=== PATIENT | male | born 1930 | race Caucasian/White ===

== ENCOUNTER 2020-11-08 00:50 | Emergency (ER) | payer MEDICARE, BC ==
[2020-11-08] MEDS ORDERED: Labetalol 100 MG/20 ML MDV IVPUSH ONE (00:58)
[2020-11-08 01:30] LABS: BLOOD UREA NITROGEN,BUN 19 mg/dL (7.0-18.0); CHLORIDE,CL 104 mmol/L (98-107); GLUCOSE RANDOM 148 mg/dL (74-106); POTASSIUM,K 4.6 mmol/L (3.5-5.1); SODIUM,NA 140 mmol/L (136-148)
--- NOTE | 2020-11-08 01:42 | EDM.PDOC ---
ED HPI GENERAL MEDICAL PROBLEM - General Chief Complaint: General Stated Complaint: SEVER PAIN Time Seen by Provider: 11/08/20 00:51 - History of Present Illness INITIAL COMMENTS - FREE TEXT/NARRATIVE: CHIEF COMPLAINT(S): Fall HISTORY OF PRESENT ILLNESS: This is a 89-year-old man with a past medical history of dementia, hypertension, CAD who comes to the emergency department with a chief complaint of fall. The patient is alert and oriented x4 and denies any complaints at all whatsoever. He states that he may have fallen. The patient's was in presence stated that over the last couple of days he has been falling multiple times. He states she states that he was walking to the restroom today and he did not make it to the restroom as he slipped on the ground and fell onto the left side and has been complaining of back pain. She states that he ambulates with a walker and that she lives with him and her son. She states that they did are able to take care of him. She was just concerned because of the fall. She denies any other symptoms. REVIEW OF SYSTEMS: Constitutional: Denies fever, chills. Eyes: Denies eye pain Ears, Nose, Mouth, & Throat: Denies earache Cardiovascular: Denies chest pain Respiratory: Denies shortness of breath Gastrointestinal: Denies Nausea, vomiting, diarrhea, hematochezia. Genitourinary: Denies hematuria Skin:Denies a rash MSK: Denies joint pain Neurological: Denies blurred vision, numbness, tingling Psychiatric: Denies depression PAST MEDICAL HISTORY: As per history of present illness and as reviewed below otherwise noncontributory. SURGICAL HISTORY: As per history of present illness and as reviewed below otherwise noncontributory. SOCIAL HISTORY: As per history of present illness and as reviewed below otherwise noncontributory. FAMILY HISTORY: As per history of present illness and as reviewed below otherwise noncontributory. EXAMINATION OF ORGAN SYSTEMS/BODY AREAS: Constitutional: Blood pressure was 220/151, heart rate 88, respiratory 18 with an oxygen saturation 98% on room air. Temperature 36.2 General: Elderly man who appears to be in no acute distress Psychiatric: Appropriate mood and affect. Eyes: No scleral icterus or conjunctival erythema pupils are equal round reactive to light. Extraocular movements intact. No vertical or horizontal nystagmus. ENMT: Moist mucous membranes. No pharyngeal erythema tongue protrudes midline. No missing or chipped teeth Cardiovascular: Regular, rate, and rhythm. No gallops, murmurs, or rubs. Bilateral upper extremity and lower extremity pulses symmetric and intact. No peripheral edema. No JVD. Respiratory: Lungs clear to auscultation bilaterally. No wheezes, rales, or rhonchi. Gastrointestinal: Soft, non-tender, non-distended. Normoactive bowel sounds Genitourinary: No suprapubic tenderness Musculoskeletal: Normal range of motion. There is tenderness to palpation along the left hip directly. Skin: No lesions or abrasions. There is no evidence of head injury. Neurological: Alert, GCS 15 strength and sensation grossly intact in upper and lower extremities bilaterally. The patient is acting very appropriately MEDICAL DECISION MAKING AND COURSE IN THE ED WITH INTERPRETATION/REVIEW OF DIAGNOSTIC STUDIES: This is a 89-year-old man with a past medical history of dementia who comes to the emergency department with acute mechanical fall which appears to be recurrent with left-sided tenderness with no evidence of trauma on the patient's body. The patient is alert and oriented x4 however given his history of dementia and fall we will obtain a CT head without contrast to ev aluate for any abnormality. Will obtain a chest x-ray and a pelvic x-ray. EKG was obtained which did not reveal any acute signs of ischemia. Will obtain broad laboratory analysis given his continued weakness. The patient initially did have hypertension however on repeat his blood pressure remained normal. Therefore no medication was administered. Laboratory: CBC is unremarkable except for some mild thrombocytopenia at 129. CMP reveals mildly elevated BUN at 19 and hyperglycemia at 148 otherwise unremarkable. Troponin is negative. CPK is normal. TSH and T4 are normal. Urinalysis was a clean catch and was negative for leukocyte esterase, negative for nitrites, and negative for blood. Interpretation: Negative. The radiological images were viewed by myself along with reading the report from the radiologist. CT head without contrast does not reveal any acute intracranial abnormality. There is generalized volume loss with mild chronic ischemic changes of the cerebral white matter. Chest x-ray does not reveal any acute cardiopulmonary process. There is stable pleural thickening likely due to prior inflammatory disease. Pelvic x-ray does not reveal any acute fracture or dislocation. After labs and imaging the patient continued to remain stable. At this time I did have a discussion with the patient, the , and the son at bedside. I discussed that given the multiple falls we could admit the patient for physical therapy and Occupational Therapy evaluation. The stated that they were able to take care of at at home and they do have an appoint with his primary care physician and they could discuss home health care and outpatient physical therapy and Occupational Therapy evaluation. I encouraged them to keep this appointment and to return to the emergency department for any new or worsening symptoms. They were amenable to discharge at this time and had no further questions. DISPOSITION: The patient was discharged home in stable condition. The patient will follow up with taper/finisher this week at their scheduled CONDITION: Fair PROCEDURES: None FINAL IMPRESSION(S)/DIAGNOSES: 1. Acute mechanical fall 2. Acute left hip contusion Eladio Rodriguez M.D. - Related Data Allergies Allergy/AdvReac Type Severity Reaction Status Date / Time No Known Allergies Allergy Verified 11/08/20 00:56 Home Meds: Home Meds Doxazosin [Cardura] 2 mg PO BEDTIME 04/01/14 [History] Simvastatin [Zocor] 40 mg PO BEDTIME 04/01/14 [History] amLODIPine [Norvasc] 5 mg PO DAILY 02/17/15 [History] Pantoprazole [ProTONIX] 40 mg PO BID #60 tab 02/19/16 [Rx] Past Medical History - Past Health History Medical/Surgical History: Denies Medical/Surgical History HEENT History: Reports: None Other HEENT History: patient wearing glasses Cardiovascular History: Reports: Hypertension, PA Other Cardiovascular History: s/p coronary stent 2 1/2 yr ago. stopped asa and plavix about 2 weeks ago. Uses antihypertensive meds on PRN basis checks BP daily. does not know when he last took the betablocker Respiratory History: Reports: None Gastrointestinal History: Reports: GERD, GI Bleed Genitourinary History: Reports: None Musculoskeletal History: Reports: None Neurological History: Reports: None Psychiatric History: Reports: None Endocrine/Metabolic History: Reports: None Hematologic History: Reports: None Immunologic History: Reports: None Oncologic (Cancer) History: Reports: None Dermatologic History: Reports: None - Past Surgical History Head Surgeries/Procedures: Reports: None Cardiovascular Surgical History: Reports: Carotid Endarterectomy, Coronary Artery Stent Other Cardiovascular Surgeries/Procedures: Carotid Endarterectomy Male Surgical History: Reports: None Social & Family History - Family History Family Medical History: No Pertinent Family History Cardiac: Reports: None Endocrine/Metabolic: Reports: Diabetes, type II - Tobacco Use Tobacco Use Status *Q: Former Tobacco User Used Tobacco, but Quit: Yes Month/Year Tobacco Last Used: 09/2009 - Caffeine Use Caffeine Use: Reports: Coffee - Recreational Drug Use Recreational Drug Use: No - Living Situation & Occupation Living situation: Reports: with Family ED ROS GENERAL - Review of Systems Review Of Systems: See Below ED EXAM, GENERAL - Physical Exam Exam: See Below Course - Vital Signs Last Recorded V/S: Last Vital Signs Temp 36.2 C 11/08/20 00:52 Pulse 80 11/08/20 02:30 Resp 18 11/08/20 02:30 BP 190/90 H 11/08/20 02:30 Pulse Ox 96 11/08/20 02:30 - Orders/Labs/Meds Labs: Laboratory Tests 11/08/20 11/08/20 11/08/20 Range/Units 00:59 00:59 00:59 WBC 6.44 (4.0-11.0) K/uL RBC 5.02 (4.50-5.90) M/uL Hgb 14.5 (13.0-17.0) g/dL Hct 42.1 (38.0-50.0) % MCV 83.9 (80.0-98.0) fL MCH 28.9 (27.0-32.0) pg MCHC 34.4 (31.0-37.0) g/dL RDW Std Deviation 45.3 (28.0-62.0) fl RDW Coeff of Milana 15 (11.0-15.0) % Plt Count 129 L (150-400) K/uL MPV 12.60 H (7.40-12.00) fL Neut % (Auto) 75.9 (48.0-80.0) % Lymph % (Auto) 13.0 L (16.0-40.0) % Ray % (Auto) 9.8 (0.0-15.0) % Eos % (Auto) 1.1 (0.0-7.0) % Baso % (Auto) 0.2 (0.0-1.5) % Neut # (Auto) 4.9 (1.4-5.7) K/uL Lymph # (Auto) 0.8 (0.6-2.4) K/uL Ray # (Auto) 0.6 (0.0-0.8) K/uL Eos # (Auto) 0.1 (0.0-0.7) K/uL Baso # (Auto) 0.0 (0.0-0.1) K/uL Sodium 140 (136-148) mmol/L Potassium 4.6 (3.5-5.1) mmol/L Chloride 104 (98-107) mmol/L Carbon Dioxide 27.0 (21.0-32.0) mmol/L BUN 19 H (7.0-18.0) mg/dL Creatinine 1.3 (0.8-1.3) mg/dL Est Cr Clr Drug Dosing TNP Estimated GFR (MDRD) 52.1 ml/min Glucose 148 H (74-106) mg/dL Calcium 8.6 (8.5-10.1) mg/dL Magnesium 2.2 (1.8-2.4) mg/dL Total Bilirubin 0.5 (0.2-1.0) mg/dL AST 23 (15-37) IU/L ALT 25 (14-63) IU/L Alkaline Phosphatase 52 (46-116) U/L Creatine Kinase 99 (26-308) U/L Troponin I < 0.050 (0.000-0.056) ng/mL Total Protein 6.8 (6.4-8.2) g/dL Albumin 3.5 (3.4-5.0) g/dL Globulin 3.3 (2.6-4.0) g/dL Albumin/Globulin Ratio 1.1 (0.9-1.6) Free T4 1.19 (0.76-1.46) ng/dL TSH 3rd Generation 1.91 (0.36-3.74) uIU/mL Urine Color YELLOW Urine Appearance CLEAR Urine pH 6.0 (5.0-8.0) Ur Specific Driscoll 1.015 (1.001-1.035) Urine Protein NEGATIVE (NEGATIVE) mg/dL Urine Glucose (UA) NEGATIVE (NEGATIVE) mg/dL Urine Ketones NEGATIVE (NEGATIVE) mg/dL Urine Occult Blood NEGATIVE (NEGATIVE) Urine Nitrite NEGATIVE (NEGATIVE) Urine Bilirubin NEGATIVE (NEGATIVE) Urine Urobilinogen 0.2 (<2.0) EU/dL Ur Leukocyte Esterase NEGATIVE (NEGATIVE) Meds: Medications Discontinued Medications Generic Name Dose Route Start Last Admin Trade Name Makayla PRN Reason Stop Dose Admin Labetalol HCl 20 mg 11/08/20 00:58 11/08/20 01:11 Normodyne IVPUSH 11/08/20 00:59 Not Given ONETIME ONE Protocol Departure - Departure Time of Disposition: : Disposition: Home, Self-Care 01 Condition: Fair Clinical Impression: Falls frequently - Discharge Information *PRESCRIPTION DRUG MONITORING PROGRAM REVIEWED*: No *COPY OF PRESCRIPTION DRUG MONITORING REPORT IN PATIENT KERRY: No Instructions: Fall Prevention in the Home, Adult, [id number], Understanding Your Risk for Falls Referrals: Gary Michelle MD [Primary Care Provider] - Forms: ED Department Discharge Additional Instructions: You were evaluated today in the emergency department on an emergency basis. At this time your work-up was negative. I did have a discussion with you and your family regarding the multiple falls. At this time your family and you decided that they were able to help you at home and that they would talk to your primary care physician on Monday regarding wheelchair, walker, and possibly physical therapy versus home health care. I do recommend that you keep this appointment. If you have any worsening symptoms or recurrent falls please return to the emergency department. [facility] [address] [place], [place] [id number] [place] [address] The patient is informed of any results of their evaluation and diagnostic workup and all questions are answered. They are given discharge instructions and return precautions. The patient is stable for discharge. The patient states they understand and agree with the plan and that they will return if their symptoms get worse or if they have any new concerns. The following information is given to patients seen in the emergency department who are being discharged to home. This information is to outline your options for follow-up care. We provide all patients seen in our emergency department with a follow-up referral. The need for follow-up, as well as the timing and circumstances, are variable depending upon the specifics of your emergency department visit. If you don't have a primary care physician on staff, we will provide you with a referral. We always advise you to contact your personal physician following an emergency department visit to inform them of the circumstance of the visit and for follow-up with them and/or the need for any referrals to a consulting specialist. The emergency department will also refer you to a specialist when appropriate. This referral assures that you have the opportunity for follow-up care with a specialist. All of these measure are taken in an effort to provide you with optimal care, which includes your follow-up. Under all circumstances we always encourage you to contact your private physician who remains a resource for coordinating your care. When calling for follow-up care, please make the office aware that this follow-up is from your recent emergency room visit. If for any reason you are refused follow-up, please contact the [facility] Emergency Department at and asked to speak to the emergency department charge nurse. Sepsis Event Note (ED) - Evaluation Sepsis Screening Result: No Definite Risk
--- NOTE | 2020-11-08 02:02 | CT ---
Indication: Altered mental status Technique: Nonenhanced axial CT imaging through the head. Sagittal and coronal reconstructions are provided. Comparison: None Findings: There is no intracranial hemorrhage, edema, or mass effect. Millard-white matter differentiation is preserved. There is [id number] generalized brain volume loss with compensatory prominence of the ventricles and cerebral sulci. Mild patchy hypoattenuation of the cerebral white matter most likely reflects chronic microvascular ischemic change. The basal cisterns are patent. The calvarium is intact. The visualized paranasal sinuses and mastoid air cells are clear, except for mild right maxillary sinus mucosal thickening. Impression: 1. No acute intracranial process. 2. Generalized brain volume loss and mild chronic ischemic changes of the cerebral white matter. Please note that all CT scans at this facility use dose modulation, iterative reconstruction, and/or weight-based dosing when appropriate to reduce radiation dose to as low as reasonably achievable. Dictated by Cornelius Rosenberg MD @ Nov 08 2020 1:56AM Signed by Dr. Cornelius Rosenberg @ Nov 08 2020 2:00AM
--- NOTE | 2020-11-08 02:04 | CR ---
Indication: Fall Technique: Frontal view pelvis Comparison: None Findings: Bones: Alignment is normal. No fractures or bone lesions. Joint spaces: Unremarkable. Soft tissues: Unremarkable. Impression: Negative. Dictated by Judy Rey MD @ Nov 08 2020 2:03AM Signed by Dr. Judy Rey @ Nov 08 2020 2:03AM
--- NOTE | 2020-11-08 02:04 | CR ---
Indication: Weakness Technique: Chest 1 view Comparison: February 16, 2016 Findings/Impression: Stable cardiac size. Two lead left-sided pacemaker tips project over the right atrium ventricle. Pulmonary vasculature. Stable biapical pleural thickening likely due to prior inflammatory disease. No focal consolidation effusion pneumothorax. No acute osseous abnormality. Dictated by Judy Rey MD @ Nov 08 2020 2:01AM Signed by Dr. Judy Rey @ Nov 08 2020 2:02AM
--- NOTE | 2020-11-08 02:51 | PCM.EKG ---
#1 Interpretation EKG Date: 11/08/20 Time: 12:47 Rhythm: Other (Atrial sensed Ventricular paced rhythm) Rate (Beats/Min): 88 [place]: LAD-Left [place] Deviation P-Wave: Present QRS: Wide ST-T: Other (No ST elevation or depression that meets [place] Criteria) Comparison: Change From Previous EKG (02/16/2016. Patient was not paced prior) EKG Interpretation Comments: Atrial sensed Ventricularly paced rhythm without any signs of ischemia
[2020-11-08 02:53] VITALS: BP 190/90; PULSE 80
== END 2020-11-08 02:40 | disposition home or self-care (01) ==
LOC: MW.ED 00:50
DX: S70.02XA Contusion of left hip, initial encounter (principal); I10 Essential (primary) hypertension; I25.2 Old myocardial infarction; K21.9 Gastro-esophageal reflux disease without esophagitis; F03.90 Unspecified dementia, unspecified severity, without behavioral disturbance, psychotic disturbance, mood disturbance, and anxiety; I25.10 Atherosclerotic heart disease of native coronary artery without angina pectoris; Z87.891 Personal history of nicotine dependence; Z79.899 Other long term (current) drug therapy; W01.0XXA Fall on same level from slipping, tripping and stumbling without subsequent striking against object, initial encounter; Y93.01 Activity, walking, marching and hiking
CPT/HCPCS: 36415; 70450; 70450-26; 71045; 71045-26; 72170; 72170-26; 80053; 81003; 82550; 83735; 84439; 84443; 84484; 85025; 93005; 93010; 99284; 99285-25; J3490

== ENCOUNTER 2021-05-16 19:19 | Emergency (ER) | payer MEDICARE, BC ==
[2021-05-16] MEDS ORDERED: Ketorolac 15 MG/ML SDV IVPUSH STA (19:49)
[2021-05-16 19:53] VITALS: BP 180/98
[2021-05-16] MEDS ORDERED: Morphine 4 MG/ML Syringe IM ONE (21:06)
--- NOTE | 2021-05-16 23:20 | CT ---
Indication: Chest pain and shortness of breath Technique: Volumetric multidetector CT images of the chest were obtained without the administration of IV contrast. Comparison: CT chest without contrast February 17, 2016 Findings: The thoracic inlet and thyroid gland are unremarkable. The thoracic aorta is nonaneurysmal. There is no mediastinal, hilar or axillary adenopathy. There is mild central bronchial thickening with minimal mucoid impaction of the lower lobe bronchi. There is bibasilar atelectasis and parenchymal scarring with minimal biapical pleural thickening. There is minimal airspace opacity in the right lung base which may represent developing infiltrate. There is no evidence of pulmonary mass or suspicious pulmonary nodule. There is again seen a moderate hiatal hernia with a patulous and thickened appearing esophagus. Motion artifact somewhat limits evaluation of the ribs with multiple old left-sided rib deformities appreciated. There are more acute appearing displaced fractures of the right 10th and 11th ribs. There is questionable fracture of the inferior aspect of the sternum versus motion artifact, correlate with history of palpable tenderness. The thoracic vertebral body heights are grossly maintained with minimal endplate Schmorl`s defects. There is mild straightening of the normal thoracic kyphosis. Impression: Demonstration of likely acute fractures of the right 10th and 11th ribs. Multiple old bilateral rib deformities are appreciated. Stable hiatal hernia with patulous, dilated esophagus. Please note that all CT scans at this facility use dose modulation, iterative reconstruction, and/or weight-based dosing when appropriate to reduce radiation dose to as low as reasonably achievable. Dictated by Nathan Connell MD @ 05/16/2021 11:18:04 PM (Electronically Signed)
[2021-05-16] MEDS ORDERED: fentaNYL 50 MCG/ML SDV IVPUSH ONE (23:27)
[2021-05-16] MEDS ORDERED: Ondansetron 4 MG/2 ML SDV IVPUSH ONE (23:27)
--- NOTE | 2021-05-16 23:28 | EDM.PDOC ---
ED HPI GENERAL MEDICAL PROBLEM - General Chief Complaint: General Stated Complaint: DEMENTIA, FALL YESTERDAY Time Seen by Provider: 05/16/21 19:22 - History of Present Illness INITIAL COMMENTS - FREE TEXT/NARRATIVE: HISTORY AND PHYSICAL: History of present illness: This is an 89-year-old gentleman with a history significant for severe dementia who is followed closely by his son and at home. Patient's reports that her son watches him throughout the evening and at night and that she watches him during the day. She reports that yesterday evening he tried to get up out of bed and he fell on the ground landing on his buttocks. She reports he had no head trauma or head injury. She reports the fall was witnessed by her son and did not injure his head. Patient is not on any anticoagulation therapy. reports that she brought him into the ER today secondary to concern regarding pain and discomfort that he was experiencing. Upon evaluating the patient, he is able to assist somewhat with pointing at his discomfort. Patient points to his left lateral chest wall as the area of discomfort around ribs #8 through 12. reports has had no other symptomatology. She reports that today he was able to walk appropriately to the bathroom with assistance with a son which is his baseline. She reports he had no recent fevers, vomiting, diarrhea, urinary symptoms. He reports he has had no shortness of breath, cough, congestion. She reports he been tolerating p.o. solids and liquids at baseline at home. Review of systems: As per history of present illness and below otherwise all systems reviewed and negative. Past medical history: As per history of present illness and as reviewed below otherwise noncontributory. Surgical history: As per history of present illness and as reviewed below otherwise noncontributory. Social history: No reported history of drug abuse. Family history: As per history of present illness and as reviewed below otherwise noncontributory. Physical exam: This patient was seen and evaluated during the 2019 SARS-CoV-2 novel coronavirus pandemic period. Community viral transmission is ongoing at time of this encounter and the emergency department is operating under pandemic response procedures. Constitutional: Patient is oriented to person, place, and time. Appears well- developed and well-nourished. No distress. HEENT: Moist mucous membranes Head: Normocephalic and atraumatic Eyes: Right eye exhibits no discharge. Left eye exhibits no discharge. No scleral icterus Neck: Normal range of motion. No tracheal deviation present. Cardiovascular: Normal rate and regular rhythm. Pulmonary: Effort normal, no respiratory distress. Abdominal: No distention Musculoskeletal: Normal range of motion Neurologic: Alert and oriented to person, place and time. Skin: [place], warm and dry. Psychiatric: Normal mood and affect. Behavior is normal. Judgment and thought content normal. Nursing note and vital signs have been reviewed Patient has no C-spine T-spine or L-spine tenderness to palpation. Patient has no left upper or right upper quadrant tenderness to palpation. Patient has no crepitus to palpation to the anterior chest wall. Patient is neurologically intact. Patient does not present with any signs or or symptoms that would be consistent with acute intracranial, intra-abdominal, intrathoracic, or long bone injury. All long bones have been palpated and range of motion been performed and there is no evidence of any acute pathology. Patient is tender to palpation to his left and right lateral chest [place] with greatest grimacing over his left lateral chest wall. Diagnostics: CT scan of his thorax reveals that he has acute fracture of his 10th and 11th right ribs. Patient does have some old fractures as well. Therapeutics: Toradol IV, morphine 4 mg IV, fentanyl 75 mg IV, Zofran 4 mg IV Assessment and plan: This is an 89-year-old gentleman who had a witnessed fall with no head trauma yesterday evening and has been able to ambulate at baseline at home according to the . She brought him into the ER today secondary to pain and discomfort to his left lateral chest wall. Patient had a CT scan which revealed that he does have an acute fracture however the fracture was noted to be on the right side of his ribs and not the left. On evaluation the patient does have some discomfort when I palpate the right ribs however he has greater discomfort when I palpate over his left lower ribs. Patient has been given morphine and Toradol in the ED with some improvement in his pain and discomfort. After obtaining the CT report, he was given an additional fentanyl 75 mg IV. Patient be discharged home with ibuprofen and [place] to assist him with his pain until he is able to see his family doctor to assist in long-term with pain management. I have discussed with the my concern regarding development of pneumonia and the need to encourage her to take deep breaths several times an hour while he is awake. Reassessment at the time of disposition demonstrates that the patient is in no acute distress. The patient has remained stable throughout the entire ED visit and is without objective evidence for acute process requiring urgent intervention or hospitalization. The patient is stable for discharge, counseling is provided as documented above, discussed symptomatic treatment and specific conditions for return. I have spoken with the patient/caregiver and discussed todays findings, in addition to providing specific details for the plan of care. Questions are answered and there is agreement with the plan. Definitive disposition and diagnosis as appropriate pending reevaluation and review of above. Left Chest Pain Score (Numeric/FACES): 4 - Related Data Allergies Allergy/AdvReac Type Severity Reaction Status Date / Time No Known Allergies Allergy Verified 11/08/20 00:56 Home Meds: Home Meds Simvastatin [Zocor] 40 mg PO BEDTIME 04/01/14 [History] amLODIPine [Norvasc] 5 mg PO DAILY 02/17/15 [History] Pantoprazole [ProTONIX] 40 mg PO BID #60 tab 02/19/16 [Rx] Donepezil [Aricept] 10 mg PO DAILY 05/16/21 [History] QUEtiapine [SEROquel] 25 mg PO DAILY 05/16/21 [History] Sertraline HCl 50 mg PO DAILY 05/16/21 [History] Past Medical History - Past Health History Medical/Surgical History: Denies Medical/Surgical History HEENT History: Reports: None Other HEENT History: patient wearing glasses Cardiovascular History: Reports: Hypertension, [place] Other Cardiovascular History: s/p coronary stent 2 1/2 yr ago. stopped asa and plavix about 2 weeks ago. Uses antihypertensive meds on PRN basis checks BP daily. does not know when he last took the betablocker Respiratory History: Reports: None Gastrointestinal History: Reports: GERD, GI Bleed Genitourinary History: Reports: None Musculoskeletal History: Reports: None Neurological History: Reports: None Psychiatric History: Reports: None Endocrine/Metabolic History: Reports: None Hematologic History: Reports: None Immunologic History: Reports: None Oncologic (Cancer) History: Reports: None Dermatologic History: Reports: None - Past Surgical History Head Surgeries/Procedures: Reports: None Cardiovascular Surgical History: Reports: Carotid Endarterectomy, Coronary Artery Stent Other Cardiovascular Surgeries/Procedures: Carotid Endarterectomy Male Surgical History: Reports: None Social & Family History - Family History Family Medical History: No Pertinent Family History Cardiac: Reports: None Endocrine/Metabolic: Reports: Diabetes, type II - Tobacco Use Tobacco Use Status *Q: Unknown Ever Used Tobacco - Caffeine Use Caffeine Use: Reports: None - Recreational Drug Use Recreational Drug Use: No - Living Situation & Occupation Living situation: Reports: with Family ED ROS GENERAL - Review of Systems Review Of Systems: See Below ED EXAM, GENERAL - Physical Exam Exam: See Below Course - Vital Signs Last Recorded V/S: Last Vital Signs Temp 97.5 F 05/16/21 19:22 Pulse 92 05/16/21 21:52 Resp 20 05/16/21 21:52 BP 180/98 H 05/16/21 19:51 Pulse Ox 93 L 05/16/21 21:52 - Orders/Labs/Meds Meds: Medications Discontinued Medications Generic Name Dose Route Start Last Admin Trade Name Makayla PRN Reason Stop Dose Admin Fentanyl 100 mcg 05/16/21 23:27 05/16/21 23:31 Fentanyl 50 Mcg/Ml Sdv IVPUSH 05/16/21 23:28 100 mcg ONETIME ONE Administration Ketorolac Tromethamine 30 mg 05/16/21 19:49 05/16/21 20:00 Ketorolac 15 Mg/Ml Sdv IVPUSH 05/16/21 19:50 30 mg ONETIME STA Administration Morphine Sulfate 4 mg 05/16/21 21:06 05/16/21 21:50 Morphine 4 Mg/Ml Syringe IM 05/16/21 21:07 4 mg ONETIME ONE Administration Ondansetron HCl 4 mg 05/16/21 23:27 05/16/21 23:31 Ondansetron 4 Mg/2 Ml Sdv IVPUSH 05/16/21 23:28 4 mg ONETIME ONE Administration Departure - Departure Time of Disposition: 23:43 Disposition: Home, Self-Care 01 Condition: Good Clinical Impression: Fall in elderly patient Right rib fracture Qualifiers: Encounter type: initial encounter Rib fracture type: multiple ribs Fracture type: closed Qualified Code(s): S22.41XA - Multiple fractures of ribs, right side, initial encounter for closed fracture - Discharge Information Instructions: Fall Prevention in the Home, Adult, [id number], Rib Fracture Referrals: Gary Michelle MD [Primary Care Provider] - Forms: ED Department Discharge Additional Instructions: You were seen and evaluated in ER today secondary to a fall last night resulting in injury to your right ribs. The CT scan reveals that you have a fracture of your rib #10 and rib #11 on the right side. You will be given a prescription for [place] and ibuprofen to assist with the pain and discomfort. Please make an appointment to see his family doctor next week so that he can assist with long- term management of his pain. Please make sure that he is taking several deep breaths every hour while he is awake. The following information is given to patients seen in the emergency department who are being discharged to home. This information is to outline your options for follow-up care. We provide all patients seen in our emergency department with a follow-up referral. The need for follow-up, as well as the timing and circumstances, are variable depending upon the specifics of your emergency department visit. If you don't have a primary care physician on staff, we will provide you with a referral. We always advise you to contact your personal physician following an emergency department visit to inform them of the circumstance of the visit and for follow-up with them and/or the need for any referrals to a consulting specialist. The emergency department will also refer you to a specialist when appropriate. This referral assures that you have the opportunity for follow-up care with a specialist. All of these measure are taken in an effort to provide you with optimal care, which includes your follow-up. Under all circumstances we always encourage you to contact your private physician who remains a resource for coordinating your care. When calling for follow-up care, please make the office aware that this follow-up is from your recent emergency room visit. If for any reason you are refused follow-up, please contact the [facility] Emergency Department at and asked to speak to the emergency department charge nurse. [facility] [address] [place] [id number] [facility] [address] [place] [id number] Sepsis Event Note (ED) - Evaluation Sepsis Screening Result: No Definite Risk - Focused Exam Vital Signs: Vital Signs Temp Pulse Resp BP Pulse Ox 05/16/21 21:52 92 20 93 L 05/16/21 19:51 86 20 180/98 H 96 05/16/21 19:22 97.5 F 86 20 97
[2021-05-16 23:58] VITALS: PULSE 101
== END 2021-05-16 23:59 | disposition home or self-care (01) ==
LOC: MW.ED 19:19
DX: S22.41XA Multiple fractures of ribs, right side, initial encounter for closed fracture (principal); I10 Essential (primary) hypertension; I25.2 Old myocardial infarction; K21.9 Gastro-esophageal reflux disease without esophagitis; Z79.899 Other long term (current) drug therapy; W06.XXXA Fall from bed, initial encounter
CPT/HCPCS: 71250; 96372; 96374; 96375; 99284; J1885; J2270; J2405; J3010